=== PATIENT | female | born 1990 | race Caucasian/White ===

== ENCOUNTER 2017-05-31 07:25 | Emergency (ER) | payer BC ==
--- NOTE | 2017-05-31 07:29 | UC ---
Ear Complaint HPI - HPI Summary HPI Summary: 27 year old female presents with complains of right ear pain. - History of Current Complaint Stated Complaint: EAR PAIN Time Seen by Provider: 05/31/17 07:28 Hx Last Menstrual Period: bleeding off and on since march. - Allergies/Home Medications Allergies/Adverse Reactions: Allergies Allergy/AdvReac Type Severity Reaction Status Date / Time Penicillins Allergy Hives/Diff. Verified 05/31/17 07:36 Breathing/I tching Home Medications: Home Medications Ibuprofen TAB* [Advil TAB*] 400 mg PO Q24H PRN 05/31/17 [History Confirmed 05/31] PMH/Surg Hx/FS Hx/Imm Hx Previously Healthy: Yes - Surgical History Surgical History: Yes Surgery Procedure, Year, and Place: c section 2011 - Family History Known Family History: Positive: Hypertension Negative: Cardiac Disease, Diabetes - Social History Alcohol Use: None Substance Use Type: None Smoking Status (MU): Never Smoked Tobacco Review of Systems Constitutional: Negative Skin: Negative Eyes: Negative ENT: Ear Ache Respiratory: Negative Cardiovascular: Negative Gastrointestinal: Negative Genitourinary: Negative Motor: Negative Neurovascular: Negative Musculoskeletal: Negative Neurological: Negative Psychological: Negative All Other Systems Reviewed And Are Negative: Yes Physical Exam Triage Information Reviewed: Yes Eye Exam: Normal ENT: Positive: Other: - right ear cerumen impaction Dental Exam: Normal Neck exam: Normal Neck: Positive: 1 Respiratory Exam: Normal Cardiovascular Exam: Normal Abdominal Exam: Normal Musculoskeletal Exam: Normal Neurological Exam: Normal Psychological Exam: Normal Skin Exam: Normal Ear Complaint Course/Dx - Differential Dx/Diagnosis Provider Diagnoses: right ear cerumen impaction Discharge - Discharge Plan Condition: Stable Disposition: HOME Prescriptions: Neomyc/Polym/HC 1% OTIC SUSP* [Cortisporin Otic Susp 1%*] 4 drop RIGHT EAR QID # 1 btl Patient Education Materials: Otitis Externa (ED), Earache (ED) Referrals: No Primary Care Phys,NOPCP [Medical Doctor] -
[2017-05-31 07:43] VITALS: BP 136/78
== END 2017-05-31 08:05 | disposition home or self-care (01) ==
LOC: UCCORT 07:25
DX: H61.21 Impacted cerumen, right ear (principal); Z88.0 Allergy status to penicillin
CPT/HCPCS: 99213; G0463

== ENCOUNTER 2018-11-01 12:23 | Emergency (ER) | payer BC ==
--- OUTSIDE RECORDS SUMMARY | 2018-11-01 15:27 | XMS REPORT ---
:1990 External Reference #:[id number] Author Organization [facility] 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 Unavailable Elvira Bruno FNP Primary Care Physician Unavailable Payers Type Date Identification Numbers Payment Provider Subscriber Commercial Policy Number: [id number] Say Mendoza PayID: [id number] [address] [address] JEIMY Stone [address] Medigap Part B Expires: 2015 Policy Number: WAPA Lopez Dela Cruz [id number] Kelly PayID: [id number] [address] [place] [address] Medigap Part B Expires: 2015 Policy Number: [employer] Zackery Mendoza [id number] PayID: [id number] [address] [place] [address] Problems Date Description Provider Status Onset: 04/16/2012 No current problems or disability Active Family History Date Family Member(s) Problem(s) Comments Father due to Suicide () Paternal Grandfather due to Suicide () Maternal Grandfather due to [place] () Social History Type Date Description Comments Marital Status Lives With Lives With Children Pets None 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 ETOH Use Denies alcohol use Smoking Patient denies history of smoking Recreational Drug Use Denies Drug Use Daily Caffeine Consumes on average 1 soda per day Exercise Type/Frequency Exercises rarely Walking Currently Active Patient is currently sexually active Contraceptive Methods Current methods include condoms Allergies, Adverse Reactions, Alerts Date Description Reaction Status Severity Comments 02/01/2012 Penicillins active Medications Description No Information Vital Signs Date Vital Result Comment 10/10/2018 BP Systolic 130 mmHg BP Diastolic 90 mmHg Body Temperature 99.0 F Heart Rate 92 /min Height 66 inches 5'6" Weight 245.38 lb BMI (Body Mass Index) 39.6 kg/m2 BSA (Body Surface Area) 2.18 m2 [place] body weight in kilograms 59 O2 % BldC Oximetry 98 % Pain Level 4 Rt Wrist/Arm 04/20/2014 Height 66 inches 5'6" Weight 232.00 lb 02/17/2014 Height 66 inches 5'6" Weight 235.00 lb 01/20/2014 Height 66 inches 5'6" Weight 240.00 lb 12/16/2013 Height 66 inches 5'6" Weight 245.00 lb 12/10/2013 BP Systolic 108 mmHg BP Diastolic 72 mmHg Height 66 inches 5'6" Weight 244.00 lb 04/14/2013 BP Systolic 106 mmHg BP Diastolic 74 mmHg Height 66 inches 5'6" Weight 226.00 lb 10/20/2012 BP Systolic 104 mmHg BP Diastolic 74 mmHg Body Temperature 102.4 F Height 65.6 inches 5'5.60" Weight 215.00 lb Results Test Date Test Result H/L Range Note Hct VFr Bld Auto 03/21/2017 Hct VFr Bld Auto 38.3 36.0-46.1 Hgb Bld-mCnc 03/21/2017 Hgb Bld-mCnc 12.1 11.6-15.8 MCH RBC Qn Auto 03/21/2017 MCH RBC Qn Auto 24.6 Low 25.9-32.7 MCHC RBC Auto-mCnc 03/21/2017 MCHC RBC Auto-mCnc 31.6 30.8-34.3 MCV RBC Auto 03/21/2017 MCV RBC Auto 78.0 Low 80.9-99.0 PMV Bld Auto 03/21/2017 PMV Bld Auto 10.9 8.9-12.4 Platelets [#/volume] 03/21/2017 Platelets [#/volume] 313 150-400 in Blood by Automated in Blood by Automated count count RBC # Bld Auto 03/21/2017 RBC # Bld Auto 4.91 3.90-5.40 RDW RBC Auto-Rto 03/21/2017 RDW RBC Auto-Rto 17.0 High 11.7-14.4 WBC # Bld Auto 03/21/2017 WBC # Bld Auto 6.5 3.1-10.7 Laboratory test 11/27/2016 Urine HCG NEGATIVE Negative 1, 2 finding (Qualitative) Laboratory test 01/13/2014 Urine HCG Negative Negative 3 finding (Qualitative) Laboratory test 04/14/2013 TSH (Thyroid 2.81 miu/mL 0.34-5.60 finding Stimulating Horm) Laboratory test 10/20/2012 Rapid Influenza A B (See Note) 4 finding Antigen CBC 02/29/2012 Hematocrit 27.4 % Low 36.0-46.1 Hemoglobin 8.5 gm/dL Low 11.6-15.8 Mean Cell Volume 82.3 fl 80.9-99.0 Mean Corpuscular HGB 25.5 pg Low 25.9-32.7 Mean Corpuscular HGB Conc 31.0 g/dL 30.8-34.3 Mean Platelet Volume 10.5 fL 8.9-12.4 Platelet Count 215 K/uL 155-360 Red Blood Count 3.33 M/uL Low 3.90-5.40 Red Cell Distri Width %CV 15.7 % High 11.7-14.4 White Blood Count 9.8 K/uL 3.1-10.7 Laboratory test finding 02/28/2012 Placenta, Third Trimester See Note 5 Type And Screen 02/27/2012 Antibody Screen Negative Patient Blood Type A Pos Laboratory test finding 02/27/2012 Culture If Indicated Comment See Note 6 Rapid Plasma Reagin Nonreactive Nonreactive 7 Urine Culture See Note 8 Urine Screen See Note 9 CBC 02/27/2012 Hematocrit 35.2 % Low 36.0-46.1 Hemoglobin 11.4 gm/dL Low 11.6-15.8 Mean Cell Volume 80.0 fl Low 80.9-99.0 Mean Corpuscular HGB 25.9 pg 25.9-32.7 Mean Corpuscular HGB Conc 32.4 g/dL 30.8-34.3 Mean Platelet Volume 10.2 fL 8.9-12.4 Platelet Count 306 K/uL 155-360 Red Blood Count 4.40 M/uL 3.90-5.40 Red Cell Distri Width %CV 15.5 % High 11.7-14.4 White Blood Count 12.3 K/uL High 3.1-10.7 Comprehensive Metabolic Panel 02/27/2012 Alb/Glob 0.5 ratio Albumin 2.4 g/dL Low 3.5-5.0 Alkaline Phosphatase 202 U/L High 50-136 Anion Gap 15 mEq/L 8-16 BUN 7 mg/dL 5-23 BUN/Creat 14.0 ratio Bilirubin,Total 0.5 mg/dL 0.2-1.2 Calcium 8.6 mg/dL 8.5-10.1 Carbon Dioxide 22 mEq/L 18-29 Chloride 105 mmol/L 98-107 Creatinine 0.5 mg/dL 0.5-1.4 Globulin 4.4 g/dL High 1.9-4.3 Glom Filtration Rate, Estimate >60 mL/min >60 Glucose 73 mg/dL Low 76-115 If >60 mL/min >60 10 Potassium 4.1 mmol/L 3.5-5.1 SGPT/Alt 30 U/L 30-65 Sgot/Ast 29 U/L 16-40 Sodium 138 mmol/L 136-145 Total Protein 6.8 g/dL 6.3-8.0 Urinalysis With Microscopic 02/27/2012 Urine Amorph Sediment Small Negative Urine Bilirubin - Dipstick Negative Negative Urine Blood Negative Negative Urine Clarity Cloudy Clear Urine Color Yellow Yellow Urine Epithelial Cells Moderate None Seen 11 Urine Glucose - Dipstick Negative mg/dL Negative Urine Ketone Trace mg/dL High Negative Urine Leuk Esterase Moderate High Negative Urine Mucus Moderate None Seen Urine Nitrite - Dipstick Negative Negative Urine PH 7.5 6.5-7.5 Urine Protein - Dipstick Negative mg/dL Negative Urine RBC 0-2 rbc/hpf 0-7 Urine Specific Dunlo 1.020 1.010-1.030 Urine Urobilinogen - Dipstick 0.2 E.U./dL 0.2-1.0 Urine WBC 15-20 wbc/hpf High 0-7 Laboratory test finding 02/07/2012 Vaginal Strep Screen See Note 12 Dna Probe N. Gono + C. Trach. 02/07/2012 Dna Probe For Chlamydia See Note 13 Trac. Dna Probe For N. Gonorrhoeae See Note 14 Laboratory test finding 12/20/2011 1 HR Glucose,Post Glucola 130 mg/dL - 138 15 1 Hour Urine Glucose See Note % Negative 16 1 Hour Urine Ketone See Note Negative 17 Hemoglobin/Hematocrit 12/20/2011 Hematocrit 32.7 % Low 36.0-46.1 Hemoglobin 10.9 gm/dL Low 11.6-15.8 1 CONSULT 11/12/16 11:00 30142 2 FIRST MORNING SPECIMENS GENERALLY CONTAIN THE HIGHEST CONCENTRATION OF HCG AND ARE RECOMMENDED FOR EARLY DETECTION OF . 3 FIRST MORNING SPECIMENS GENERALLY CONTAIN THE HIGHEST CONCENTRATION OF HCG AND ARE RECOMMENDED FOR EARLY DETECTION OF . 4 RUN DATE: 10/21/12 [facility] LAB LIVE PAGE 1 RUN TIME: [address] [place] [address] Specimen Inquiry ----- Name: LOPEZ MENDOZA : [address]: Chaparro CARDENAS,Katerine Grier Acct: [id number] Unit: [id number] AGE: 22 Location: [facility] Re10/20/12 SEX: F Status: REG REF ----- SPEC: [id number] AURELIO: 10/20/12-[address] [facility] [address]: Katerine Mayfield NP REQ: [id number] RECD: 10/20/12 STATUS: COMP _ SOURCE: [facility]: ORDERED: Gary Flu A B QUERIES: Medent Number [id number] ----- Procedure Result Verified Site ----- Rapid Influenza A B Antigen Final 10/21/12-0528 ML Influenza A Antigen Positive by Enzyme Immunoassay Influenza B Antigen Negative by Enzyme Immunoassay Cell culture testing can be performed to confirm negative test results and to assist in detecting other viruses that can produce similar clinical symptoms. Please notify Microbiology Lab if further testing is desired. ----- END OF REPORT * ML=Testing performed at Main Lab DEPARTMENT OF PATHOLOGY, [address] [place] [address] Naveen Ponce M.D. Director [facility] Permit # [id number] OPERATION/PROCEDURE DIAGNOSIS: "PLACENTA": FUNISITIS, FOCAL ACUTE. MEMBRANES, AND PLACENTA WITHOUT SIGNIFICANT HISTOLOGIC ABNORMALITY. WYS/clf D : 03/03/2012 11:20:41 AM INTERPRETATION COMMENT Bryanna of Dr. Avalos's office notified of the diagnosis on April 02 at 11:21 AM. I asked her to forward the diagnosis as soon as possible to the dean of graduate studies. GROSS The specimen is additionally labeled "PLACENTA". This contains an 619 g. ovoid placenta measuring 20.0 x 18.5 x 2.2 cm in overall dimensions. A three-vessel umbilical cord is 21.5 cm in length, with a uniform diameter of 1.0 cm. It is free of true or false knots and inserts 1.8 cm away from the nearest placental margin. The subchorionic vessels arborize in a normal distribution to supply the entire steel-luciano subchorionic surface. The membranes demonstrate a central rupture and are delicate and translucent without foul smell or discoloration. The maternal surface consists of beefy red cotyledons without significant adherent clot, calcification, nor infarction. Quality Assurance Monitor Chassis sections are submitted within three cassettes. WS/clf MICROSCOPIC Sections show normal appearing chorionic villi with appropriate vascularity. Intervillous fibrin is of a mild amount. The cord has three vessels with focal evidence of neutrophils in the vessel macias but not extending out into Jan's Jelly. The amniotic membranes are have a single layer of cuboidal cells. The chorion is composed of eosinophilic decidualized cells with abundant cytoplasm. PRE OPERATIVE DIAGNOSIS Multiparity, king parrachato, failed version attempt REVIEW CODE CODE: I ----- Signed TERRENCE ENGEL MD 03/03/12 1404 ----- 6 CULTURE TO FOLLOW 7 PENDING; TEST PERFORMED ON MONDAYS AND THURSDAYS 8 NO GROWTH: FINAL REPORT 9 02/27/12 LAB.OPT Deleted by [facility] UACOM 10 Note: Persistent reduction for 3 months or more in an eGFR <60 mL/min/1.73 m2 defines CKD. Patients with eGFR values >/=60 mL/min/1.73 m2 may also have CKD if evidence of persistent proteinuria is present. The original MDRD equation for estimated GFR is not valid for patients less than 18 years of age. Additional information may be found at www.kdoqi.org. 11 POSSIBLE UROGENITAL CONTAMINATION. 12 Organism 1 ! BETA STREPTOCOCCUS GROUP B QUANTITY ! FROM BROTH RECOMMENDED THERAPY: ! PENICILLIN OR AMPICILLIN. 13 NEGATIVE FOR CHLAMYDIA TRACHOMATIS BY DNA HYBRIDIZATION ASSAY. THIS TEST IS APPROVED FOR OCULAR AND UROGENITAL SITES ONLY. 14 NEGATIVE FOR NEISSERIA GONORRHOEAE BY DNA HYBRIDIZATION ASSAY. THIS METHOD IS APPROVED FOR UROGENITAL SITES ONLY. 15 POST GLUCOLA 16 NO SPECIMEN RECEIVED 17 NO SPECIMEN RECEIVED Procedures Date CPT Code Description Status 01/13/2014 46202 Anesthesia, Hysteroscopy, Hystersalpingography Completed 02/28/2012 28269 Section Only Completed 02/28/2012 52292 Anesthesia, Delivery Completed 02/21/2012 74280 Antepartum 7 Or More Total Office Visit Completed 02/14/2012 80627 Antepartum 7 Or More Total Office Visit Completed 02/13/2012 32192 Antepartum 7 Or More Total Office Visit Completed 02/07/2012 55365 Antepartum 7 Or More Total Office Visit Completed 01/24/2012 11057 Antepartum 7 Or More Total Office Visit Completed 01/10/2012 64984 Antepartum 7 Or More Total Office Visit Completed 01/09/2012 07173 Antepartum 7 Or More Total Office Visit Completed 12/20/2011 05238 Antepartum 7 Or More Total Office Visit Completed 12/05/2011 88994 Antepartum 7 Or More Total Office Visit Completed 11/19/2011 87656 Antepartum 7 Or More Total Office Visit Completed 10/31/2011 30876 Antepartum 7 Or More Total Office Visit Completed 10/16/2011 28825 Antepartum 7 Or More Total Office Visit Completed 09/26/2011 93285 Antepartum 7 Or More Total Office Visit Completed 09/13/2011 17906 Antepartum 7 Or More Total Office Visit Completed 08/15/2011 72623 Antepartum 7 Or More Total Office Visit Completed 07/07/2009 40050 Post- Care Only Completed 2009 04400 Vaginal Delivery Global Care Completed 05/19/2009 15712 Antepartum 7 Or More Total Office Visit Completed 05/11/2009 85040 Antepartum 7 Or More Total Office Visit Completed 05/04/2009 75093 Antepartum 7 Or More Total Office Visit Completed 04/27/2009 47518 Antepartum 7 Or More Total Office Visit Completed 04/25/2009 43616 Antepartum 7 Or More Total Office Visit Completed 04/21/2009 00953 Antepartum 7 Or More Total Office Visit Completed 04/14/2009 44428 Antepartum 7 Or More Total Office Visit Completed 03/30/2009 45575 Antepartum 7 Or More Total Office Visit Completed 03/23/2009 33476 Antepartum 7 Or More Total Office Visit Completed 03/14/2009 87523 Antepartum 7 Or More Total Office Visit Completed 02/21/2009 03811 Antepartum 7 Or More Total Office Visit Completed 02/16/2009 31372 Antepartum 7 Or More Total Office Visit Completed 01/20/2009 00223 Antepartum 7 Or More Total Office Visit Completed 12/22/2008 13383 Antepartum 7 Or More Total Office Visit Completed 12/14/2008 30505 Antepartum 7 Or More Total Office Visit Completed 11/12/2008 80481 Antepartum 7 Or More Total Office Visit Completed Plan of Care Future Appointment(s):10/14/2019 3:00 pm - Elvira Bruno FNP at [facility]
[2018-11-01 15:42] VITALS: BP 141/113
--- NOTE | 2018-11-01 16:04 | UC ---
Eye Complaint HPI - HPI Summary HPI Summary: Patient developed a large red lesion on the lower eye lid, there are two pustules noted, no vision changes, states she does have a sore thraot today, but is not concerned about it. - History of Current Complaint Chief Complaint: UCGeneralIllness Stated Complaint: LEFT EYE CONCERN Time Seen by Provider: 11/01/18 15:37 Hx Obtained From: Patient Hx Last Menstrual Period: beginning of Oct, 2018 ?: No Onset/Duration: Sudden Onset, Lasting Days Timing: Constant Severity Initially: Moderate Severity Currently: Moderate Pain Intensity: 5 Location of Injury: Eye Lid (lower) Character: Dull Associated Signs And Symptoms: Positive: Drainage (Purulent) - Allergies/Home Medications Allergies/Adverse Reactions: Allergies Allergy/AdvReac Type Severity Reaction Status Date / Time Penicillins Allergy Difficulty Verified 11/01/18 15:35 Breathing PMH/Surg Hx/FS Hx/Imm Hx Previously Healthy: Yes - Surgical History Surgical History: Yes Surgery Procedure, Year, and Place: c section 2011. removal of vaginal polyps - Family History Known Family History: Positive: Hypertension Negative: Cardiac Disease, Diabetes - Social History Alcohol Use: None Substance Use Type: None Smoking Status (MU): Never Smoked Tobacco Review of Systems All Other Systems Reviewed And Are Negative: Yes Constitutional: Positive: Negative Skin: Positive: Negative Eyes: Positive: Drainage ENT: Positive: Negative Respiratory: Positive: Negative Cardiovascular: Positive: Negative Gastrointestinal: Positive: Negative Genitourinary: Positive: Negative Motor: Positive: Negative Neurovascular: Positive: Negative Musculoskeletal: Positive: Negative Neurological: Positive: Negative Psychological: Positive: Negative Is Patient Immunocompromised?: No Physical Exam Triage Information Reviewed: Yes Appearance: Well-Appearing, Well-Nourished, Pain Distress Vital Signs: Initial Vital Signs Temp 98.2 F 11/01/18 15:35 Pulse 95 11/01/18 15:35 Resp 16 11/01/18 15:35 BP 141/113 11/01/18 15:35 Pulse Ox 98 11/01/18 15:35 Eyes: Positive: Other: - large inflammed eyelash follicle with purulent drainage ENT: Positive: Pharyngeal erythema, TMs normal Dental Exam: Normal Neck exam: Normal Respiratory Exam: Normal Cardiovascular Exam: Normal Abdominal Exam: Normal Bowel Sounds: Positive: Present Musculoskeletal Exam: Normal Neurological Exam: Normal Psychological Exam: Normal Skin Exam: Normal Eye Complaint Course/Dx - Course Course Of Treatment: hx obtained, exam performed ,meds reviewed, small amount of drainage present out of the eye lid. treated for infection - Differential Dx/Diagnosis Differential Diagnosis/HQI/PQRI: Conjunctivitis, Other - stye Provider Diagnosis: Hordeolum externum (stye) Discharge - Sign-Out/Discharge Documenting (check all that apply): Patient Departure All imaging exams completed and their final reports reviewed: Yes - Discharge Plan Condition: Stable Disposition: HOME Prescriptions: Sulfamethox/Trimethoprim DS* [Bactrim DS 800/160 TAB*] 1 tab PO BID #14 tab Patient Education Materials: Stye (ED) Referrals: Reema Luna NP [Primary Care Provider] - Additional Instructions: 1.Take the antibiotic as prescribed. 2. Warm compresses to the eye multiple times a day for the next few days 3. Follow up if not improving - Billing Disposition and Condition Condition: STABLE Disposition: Home - Attestation Statements Provider Attestation: Per institutional requirements, I have reviewed the chart, however, I was not consulted specifically or made aware of this patient by the midlevel provider. I did not personally evaluate, interact with , or disposition this patient.
== END 2018-11-01 16:19 | disposition home or self-care (01) ==
LOC: UCCORT 12:23
DX: H00.015 Hordeolum externum left lower eyelid (principal); Z88.0 Allergy status to penicillin; I10 Essential (primary) hypertension
CPT/HCPCS: 99212; G0463